=== PATIENT | female | born 1965 | race Caucasian/White ===

== ENCOUNTER 2025-04-29 16:18 | Inpatient (IN) | payer OTHER ==
[~2025-04-29] VITALS: Ht 165.1 cm; Wt 75.0 kg
[2025-04-29 18:08] LABS: BASO # 0.1 10^3/uL (0.0-0.2); BASO % 0.4 % (0.0-1.0); EOS # 0.0 10^3/uL (0.0-0.5); EOS % 0.1 % (0.0-3.0); LYMPH # 2.1 10^3/uL (1.5-5.0); LYMPH % 12.5 % (24.0-44.0); MONO # 1.2 10^3/uL (0.0-0.8); MONO % 7.0 % (2.0-8.0); NEUTROPHILS # 13.0 10^3/uL (1.5-8.5); NEUTROPHILS % 78.5 % (36.0-66.0); PLATELET COUNT, AUTOMATED 300 10^3/uL (150-450)
[2025-04-29 18:52] LABS: C REACTIVE PROTEIN QUANTITATIV 25.21 MG/DL (<1.0); CALCIUM LEVEL 8.4 MG/DL (8.5-10.1); CARBON DIOXIDE LEVEL 13 MMOL/L (20-31); CHLORIDE LEVEL 100 MMOL/L (98-107); CREATININE FOR GFR 0.75 MG/DL (0.55-1.30); GLOMERULAR FILTRATION RATE > 90.0 (>51); POTASSIUM SERUM 4.2 MMOL/L (3.5-5.1); SODIUM LEVEL 132 MMOL/L (136-145)
[2025-04-29] MEDS ORDERED: ISOVUE-370 76% 100 ML VIAL As Ordered ONE (19:15)
[2025-04-29 19:30] LABS: VENOUS PH 7.298 UNITS (7.330-7.430)
[2025-04-29 19:31] LABS: VENOUS BASE EXCESS -11.8 (-2.0-2.0); VENOUS HCO3 13.0 MMOL/L (23.0-27.0); VENOUS O2 SATURATION 78.5 % (60.0-80.0); VENOUS PARTIAL PRESSURE CO2 27.2 mmHg (38.0-50.0); VENOUS PARTIAL PRESSURE O2 43.0 mmHg (30.0-50.0); VENOUS STANDARD HCO3 14.9 MMOL/L; VENOUS TOTAL CO2 13.9 MMOL/L (24.0-28.0)
[2025-04-29] MEDS: NS (Normal Saline) 0.9% 1,000 ML IV ONE (19:47)
[2025-04-29 20:05] LABS: ALT/SGPT 10 U/L (7.0-40); AST/SGOT 11 U/L (<34)
[2025-04-29 20:06] LABS: ACETONE/KETONE > 4.50 MMOL/L (0.02-0.27)
[2025-04-29 20:23] LABS: OSMOLALITY SERUM 303 MOSM/KG (275-295)
[2025-04-29] MEDS ORDERED: BAYE500T2 PO (20:36)
[2025-04-29 20:39] LABS: KETONE, URINE AUTO RFX 2+ mg/dL (NEGATIVE); MUCUS, URINE RFX SMALL (NEGATIVE); NITRITE, URINE AUTO RFX NEGATIVE (NEGATIVE); RBC, URINE AUTO RFX 3 /HPF (0-3); SQUAM EPITHELIAL CELL UR AURFX 3 /HPF (0-6); WBC, URINE AUTO RFX 5 /HPF (0-3)
[2025-04-29 20:40] LABS: LEUKOCYTE ESTERASE UR AUTO RFX 1+ (NEGATIVE)
[2025-04-29] MEDS ORDERED: HOME MED LIST COMPLETE! XX SCH (20:40)
[2025-04-29] MEDS ORDERED: VANCOMYCIN HCL 1,880 MG in IV FLUID PLACE HOLDER 1 EA IV ONE (20:40)
[2025-04-29] MEDS: KETOROLAC 30 MG/ML 1 ML VIAL IV ONE (21:28)
[2025-04-29] MEDS: cefTRIAXone SOD 2 GM in DEXTROSE 5% (D5W) ADV/MINI-BAG 50 ML IV ONE (21:28)
[2025-04-29] MEDS: HumuLIN R (REGULAR) INSULIN (NovoLIN R) **100 U/ML** PER UNIT IV ONE (21:31)
[2025-04-29] MEDS ORDERED: DEXTROSE 50% 50 ML SYRINGE IV PRN (22:20)
[2025-04-29] MEDS ORDERED: GLUCAGON INJ 1 MG VIAL SC PRN (22:20)
[2025-04-29] MEDS ORDERED: INSULIN REGULAR IN 0.9 % NACL 100 UNIT in IV 1 EA IV SCH (22:20)
[2025-04-29] MEDS ORDERED: GLUCOSE 4 GM CHEW PO PRN (22:20)
[2025-04-29] MEDS ORDERED: INSULIN IV RATE CHANGE DOCUMENTATION ML/HR XX SCH (22:20)
[2025-04-29] MEDS: VANCOMYCIN HCL 1,500 MG, VIAL MATE ADAPTER 1 EACH in NS 500 ML IV ONE (22:25)
[2025-04-29 23:24] LABS: VENOUS BASE EXCESS -11.5 (-2.0-2.0); VENOUS HCO3 13.1 MMOL/L (23.0-27.0); VENOUS O2 SATURATION 97.5 % (60.0-80.0); VENOUS PARTIAL PRESSURE CO2 26.3 mmHg (38.0-50.0); VENOUS PARTIAL PRESSURE O2 104.9 mmHg (30.0-50.0); VENOUS PH 7.316 UNITS (7.330-7.430); VENOUS STANDARD HCO3 15.4 MMOL/L; VENOUS TOTAL CO2 13.9 MMOL/L (24.0-28.0)
[2025-04-29 23:59] LABS: INR 1.15
[2025-04-30] VITALS (13 sets, daily range): BP systolic 91–128; BP diastolic 51–60; TEMP 97.5–98.5; O2SAT 96–98
[2025-04-30 00:10] LABS: CALCIUM LEVEL 7.6 MG/DL (8.5-10.1); CARBON DIOXIDE LEVEL 14 MMOL/L (20-31); CHLORIDE LEVEL 105 MMOL/L (98-107); CREATININE FOR GFR 0.66 MG/DL (0.55-1.30); GLOMERULAR FILTRATION RATE > 90.0 (>51); POTASSIUM SERUM 4.8 MMOL/L (3.5-5.1); SODIUM LEVEL 135 MMOL/L (136-145)
[2025-04-30] MEDS: NS (Normal Saline) 0.9% 1,000 ML IV ONE (00:34)
[2025-04-30] MEDS: NS (Normal Saline) 0.9% 1,000 ML IV SCH ×2 (00:34→04:20)
[2025-04-30] MEDS ORDERED: VANCOMYCIN HCL 1,000 MG, VIAL MATE ADAPTER 1 EACH in NS 250 ML IV SCH (01:20)
[2025-04-30 03:23] LABS: VENOUS BASE EXCESS -15.3 (-2.0-2.0); VENOUS HCO3 10.0 MMOL/L (23.0-27.0); VENOUS O2 SATURATION 98.8 % (60.0-80.0); VENOUS PARTIAL PRESSURE CO2 23.0 mmHg (38.0-50.0); VENOUS PARTIAL PRESSURE O2 203.1 mmHg (30.0-50.0); VENOUS PH 7.258 UNITS (7.330-7.430); VENOUS STANDARD HCO3 12.8 MMOL/L; VENOUS TOTAL CO2 10.7 MMOL/L (24.0-28.0)
[2025-04-30 04:04] LABS: CALCIUM LEVEL 7.6 MG/DL (8.5-10.1); CARBON DIOXIDE LEVEL 12 MMOL/L (20-31); CHLORIDE LEVEL 108 MMOL/L (98-107); CREATININE FOR GFR 0.63 MG/DL (0.55-1.30); GLOMERULAR FILTRATION RATE > 90.0 (>51); POTASSIUM SERUM 3.9 MMOL/L (3.5-5.1); SODIUM LEVEL 136 MMOL/L (136-145)
[2025-04-30] MEDS: INSULIN REGULAR IN 0.9 % NACL 100 UNIT in IV 1 EA IV SCH (05:13)
[2025-04-30] MEDS: INSULIN IV RATE CHANGE DOCUMENTATION ML/HR XX SCH (06:00)
[2025-04-30] MEDS: KCL 10MEQ/100ML SWI (KRUN) 10 MEQ in IV 1 EA IV SCH (06:30)
[2025-04-30] MEDS ORDERED: POTASSIUM CHLORIDE 10MEQ/100ML SWI As Ordered ONE (06:50)
[2025-04-30] MEDS: PANTOPRAZOLE 40MG VIAL IV SCH (09:13)
[2025-04-30] MEDS: SODIUM BICARBONATE 325 MG TAB PO SCH (09:13)
[2025-04-30] MEDS: HEPARIN SOD 5000 UNITS/ML 1 ML VIAL/SYRINGE SC SCH (09:14)
[2025-04-30] MEDS: LanTUS (INSULIN GLARGINE INJ) 1 UNITS/0.01 ML SC SCH (09:14)
[2025-04-30 09:18] LABS: BASO # 0.1 10^3/uL (0.0-0.2); BASO % 0.3 % (0.0-1.0); CALCIUM LEVEL 8.3 MG/DL (8.5-10.1); CARBON DIOXIDE LEVEL 15 MMOL/L (20-31); CHLORIDE LEVEL 108 MMOL/L (98-107); CREATININE FOR GFR 0.58 MG/DL (0.55-1.30); EOS # 0.1 10^3/uL (0.0-0.5); EOS % 0.6 % (0.0-3.0); GLOMERULAR FILTRATION RATE > 90.0 (>51); LYMPH # 1.6 10^3/uL (1.5-5.0); LYMPH % 11.3 % (24.0-44.0); MONO # 1.3 10^3/uL (0.0-0.8); MONO % 8.8 % (2.0-8.0); NEUTROPHILS # 11.2 10^3/uL (1.5-8.5); NEUTROPHILS % 77.7 % (36.0-66.0); PLATELET COUNT, AUTOMATED 277 10^3/uL (150-450); POTASSIUM SERUM 3.7 MMOL/L (3.5-5.1); SODIUM LEVEL 138 MMOL/L (136-145)
[2025-04-30] MEDS: KETOROLAC 30 MG/ML 1 ML VIAL IV PRN (09:25)
[2025-04-30] MEDS: ACETAMINOPHEN *IV* 1,000 MG in IV 1 EA IV PRN (09:25)
[2025-04-30 09:30] LABS: C REACTIVE PROTEIN QUANTITATIV 23.60 MG/DL (<1.0)
[2025-04-30] MEDS ORDERED: DEXTROSE 50% 50 ML SYRINGE IV PRN (11:00)
[2025-04-30] MEDS ORDERED: GLUCAGON INJ 1 MG VIAL SC PRN (11:00)
[2025-04-30] MEDS ORDERED: GLUCOSE 4 GM CHEW PO PRN (11:00)
[2025-04-30] MEDS: VANCOMYCIN HCL 1,250 MG, VIAL MATE ADAPTER 1 EACH in NS 250 ML IV SCH (12:19)
[2025-04-30] MEDS: INSULIN LISPRO (NovoLOG) PER UNIT SC SCH ×3 (13:14→21:40)
[2025-04-30 14:56] LABS: CALCIUM LEVEL 7.7 MG/DL (8.5-10.1); CARBON DIOXIDE LEVEL 17 MMOL/L (20-31); CHLORIDE LEVEL 110 MMOL/L (98-107); CREATININE FOR GFR 0.60 MG/DL (0.55-1.30); GLOMERULAR FILTRATION RATE > 90.0 (>51); PHOSPHORUS LEVEL 2.3 MG/DL (2.5-4.9); POTASSIUM SERUM 3.7 MMOL/L (3.5-5.1); SODIUM LEVEL 140 MMOL/L (136-145)
[2025-04-30] MEDS ORDERED: cefTRIAXone SOD 2 GM in DEXTROSE 5% (D5W) ADV/MINI-BAG 50 ML IV SCH (20:00)
[2025-05-01] VITALS (8 sets, daily range): BP systolic 127–166; BP diastolic 59–73; TEMP 97.1–102.4; O2SAT 96–99
[2025-05-01 05:27] LABS: BASO # 0.0 10^3/uL (0.0-0.2); BASO % 0.2 % (0.0-1.0); EOS # 0.2 10^3/uL (0.0-0.5); EOS % 1.6 % (0.0-3.0); LYMPH # 1.4 10^3/uL (1.5-5.0); LYMPH % 11.1 % (24.0-44.0); MONO # 0.9 10^3/uL (0.0-0.8); MONO % 7.3 % (2.0-8.0); NEUTROPHILS # 10.1 10^3/uL (1.5-8.5); NEUTROPHILS % 78.4 % (36.0-66.0); PLATELET COUNT, AUTOMATED 279 10^3/uL (150-450)
[2025-05-01 05:47] LABS: CALCIUM LEVEL 7.9 MG/DL (8.5-10.1); CARBON DIOXIDE LEVEL 18 MMOL/L (20-31); CHLORIDE LEVEL 109 MMOL/L (98-107); CREATININE FOR GFR 0.67 MG/DL (0.55-1.30); GLOMERULAR FILTRATION RATE > 90.0 (>51); POTASSIUM SERUM 3.6 MMOL/L (3.5-5.1); SODIUM LEVEL 139 MMOL/L (136-145)
[2025-05-01] MEDS: INSULIN LISPRO (NovoLOG) PER UNIT SC SCH ×3 (07:30→18:22)
[2025-05-01] MEDS: HumuLIN R (REGULAR) INSULIN (NovoLIN R) **100 U/ML** PER UNIT IV STA (08:26)
[2025-05-01] MEDS ORDERED: LanTUS (INSULIN GLARGINE INJ) 1 UNITS/0.01 ML SC SCH (09:00)
[2025-05-01] MEDS: LanTUS (INSULIN GLARGINE INJ) 1 UNITS/0.01 ML SC SCH (09:46)
[2025-05-01] MEDS: cefTRIAXone SOD 2 GM in DEXTROSE 5% (D5W) ADV/MINI-BAG 50 ML IV SCH (09:46)
[2025-05-01] MEDS: FLUZONE VACCINE TRI PF(25-26) 0.5ML SYRINGE IM.IMMUN ONE (15:57)
[2025-05-01] MEDS: PNEUMOC 21-VAL CONJ-DIP CRM/PF 0.5 ML SYRINGE IM.IMMUN ONE (15:57)
[2025-05-01] MEDS ORDERED: VANCOMYCIN HCL 750 MG, VIAL MATE ADAPTER 1 EACH in NS 250 ML IV SCH (23:00)
[2025-05-02 00:20] VITALS: BP 152/65; TEMP 99.3; O2SAT 99
[2025-05-02 04:52] VITALS: BP 132/61; TEMP 100.3; O2SAT 95
[2025-05-02] MEDS ORDERED: CALCIUM CARBONATE 500 MG CHEW U/D PO PRN (06:25)
[2025-05-02] MEDS: ONDANSETRON 4MG/2ML VIAL IV PRN (06:50)
[2025-05-02 08:15] LABS: BASO # 0.0 10^3/uL (0.0-0.2); BASO % 0.3 % (0.0-1.0); EOS # 0.2 10^3/uL (0.0-0.5); EOS % 1.9 % (0.0-3.0); LYMPH # 1.7 10^3/uL (1.5-5.0); LYMPH % 14.1 % (24.0-44.0); MONO # 0.9 10^3/uL (0.0-0.8); MONO % 7.1 % (2.0-8.0); NEUTROPHILS # 8.9 10^3/uL (1.5-8.5); NEUTROPHILS % 75.1 % (36.0-66.0); PLATELET COUNT, AUTOMATED 286 10^3/uL (150-450)
[2025-05-02] MEDS: cefTRIAXone SOD 2 GM in NS MINI-BAG PLUS 50 ML IV SCH (08:23)
[2025-05-02 08:36] LABS: CALCIUM LEVEL 7.7 MG/DL (8.5-10.1); CARBON DIOXIDE LEVEL 20 MMOL/L (20-31); CHLORIDE LEVEL 110 MMOL/L (98-107); CREATININE FOR GFR 0.70 MG/DL (0.55-1.30); GLOMERULAR FILTRATION RATE > 90.0 (>51); MAGNESIUM LEVEL 1.6 MG/DL (1.8-2.4); POTASSIUM SERUM 3.3 MMOL/L (3.5-5.1); SODIUM LEVEL 141 MMOL/L (136-145)
[2025-05-02] MEDS: VANCOMYCIN HCL 750 MG, VIAL MATE ADAPTER 1 EACH in NS 250 ML IV SCH (09:39)
[2025-05-02 10:00] VITALS: BP 138/80; TEMP 97.8; O2SAT 99
[2025-05-02 10:57] LABS: PHOSPHORUS LEVEL 3.2 MG/DL (2.5-4.9)
[2025-05-02] MEDS: MAG SULF 1GM/100ML (MAG RUN) 1 GM in IV 1 EA IV SCH (11:02)
[2025-05-02] MEDS: POTASSIUM CHLORIDE 10MEQ SR TABLET PO ONE (12:39)
[2025-05-02 21:11] VITALS: BP 128/61; TEMP 99; O2SAT 98
[2025-05-03 02:54] VITALS: BP 142/76; TEMP 97.8; O2SAT 97
[2025-05-03 06:22] LABS: BASO # 0.0 10^3/uL (0.0-0.2); BASO % 0.4 % (0.0-1.0); EOS # 0.3 10^3/uL (0.0-0.5); EOS % 2.5 % (0.0-3.0); LYMPH # 1.6 10^3/uL (1.5-5.0); LYMPH % 16.7 % (24.0-44.0); MONO # 0.7 10^3/uL (0.0-0.8); MONO % 6.8 % (2.0-8.0); NEUTROPHILS # 7.1 10^3/uL (1.5-8.5); NEUTROPHILS % 72.4 % (36.0-66.0); PLATELET COUNT, AUTOMATED 325 10^3/uL (150-450)
[2025-05-03 06:48] LABS: CALCIUM LEVEL 7.8 MG/DL (8.5-10.1); CARBON DIOXIDE LEVEL 22 MMOL/L (20-31); CHLORIDE LEVEL 112 MMOL/L (98-107); CREATININE FOR GFR 0.70 MG/DL (0.55-1.30); GLOMERULAR FILTRATION RATE > 90.0 (>51); MAGNESIUM LEVEL 1.9 MG/DL (1.8-2.4); POTASSIUM SERUM 3.7 MMOL/L (3.5-5.1); SODIUM LEVEL 143 MMOL/L (136-145)
[2025-05-03] MEDS ORDERED: MOM 30 ML SUSPENSION UDC PO PRN (08:40)
[2025-05-03] MEDS ORDERED: MIRALAX *UNIT DOSE* 17 GM PACKET PO PRN (08:40)
[2025-05-03] MEDS: SENNOSIDES/DOCUSATE SODIUM 8.6 MG/50MG TAB PO SCH (10:02)
[2025-05-03 12:00] VITALS: BP 141/67; TEMP 98.6; O2SAT 97
[2025-05-03 20:49] VITALS: BP 141/51; TEMP 97.5; O2SAT 95
[2025-05-03] MEDS: AUGMENTIN 875 MG TAB PO SCH (21:08)
[2025-05-04 04:20] VITALS: BP 140/60; TEMP 97.3; O2SAT 95
[2025-05-04 06:33] LABS: BASO # 0.0 10^3/uL (0.0-0.2); BASO % 0.4 % (0.0-1.0); EOS # 0.3 10^3/uL (0.0-0.5); EOS % 2.9 % (0.0-3.0); LYMPH # 2.0 10^3/uL (1.5-5.0); LYMPH % 20.5 % (24.0-44.0); MONO # 0.8 10^3/uL (0.0-0.8); MONO % 8.5 % (2.0-8.0); NEUTROPHILS # 6.6 10^3/uL (1.5-8.5); NEUTROPHILS % 66.5 % (36.0-66.0); PLATELET COUNT, AUTOMATED 360 10^3/uL (150-450)
[2025-05-04 07:05] LABS: CALCIUM LEVEL 7.7 MG/DL (8.5-10.1); CARBON DIOXIDE LEVEL 25 MMOL/L (20-31); CHLORIDE LEVEL 110 MMOL/L (98-107); CREATININE FOR GFR 0.58 MG/DL (0.55-1.30); GLOMERULAR FILTRATION RATE > 90.0 (>51); POTASSIUM SERUM 3.8 MMOL/L (3.5-5.1); SODIUM LEVEL 144 MMOL/L (136-145)
[2025-05-04 08:48] LABS: C REACTIVE PROTEIN QUANTITATIV 8.73 MG/DL (<1.0)
[2025-05-04] MEDS: metFORMIN 500 MG TAB PO SCH (09:49)
[2025-05-04] MEDS: LanTUS (INSULIN GLARGINE INJ) 1 UNITS/0.01 ML SC SCH (09:49)
[2025-05-04] MEDS: INSULIN LISPRO (NovoLOG) PER UNIT SC SCH (12:47)
[2025-05-04 21:11] VITALS: BP 130/60; TEMP 98.6; O2SAT 97
[2025-05-04 23:54] VITALS: TEMP 98.4
[2025-05-04] MEDS: MUPIROCIN 2% OINT 22 GM TUBE TOP SCH (23:56)
[2025-05-05 03:55] VITALS: BP 156/72; TEMP 97.8; O2SAT 95
[2025-05-05 06:46] LABS: BASO # 0.0 10^3/uL (0.0-0.2); BASO % 0.4 % (0.0-1.0); EOS # 0.3 10^3/uL (0.0-0.5); EOS % 2.7 % (0.0-3.0); LYMPH # 2.0 10^3/uL (1.5-5.0); LYMPH % 18.8 % (24.0-44.0); MONO # 1.2 10^3/uL (0.0-0.8); MONO % 10.7 % (2.0-8.0); NEUTROPHILS # 7.1 10^3/uL (1.5-8.5); NEUTROPHILS % 65.6 % (36.0-66.0); PLATELET COUNT, AUTOMATED 403 10^3/uL (150-450)
[2025-05-05 07:01] LABS: C REACTIVE PROTEIN QUANTITATIV 7.29 MG/DL (<1.0); CALCIUM LEVEL 7.5 MG/DL (8.5-10.1); CARBON DIOXIDE LEVEL 26 MMOL/L (20-31); CHLORIDE LEVEL 106 MMOL/L (98-107); CREATININE FOR GFR 0.55 MG/DL (0.55-1.30); GLOMERULAR FILTRATION RATE > 90.0 (>51); POTASSIUM SERUM 3.5 MMOL/L (3.5-5.1); SODIUM LEVEL 142 MMOL/L (136-145)
[2025-05-05 09:45] LABS: MAGNESIUM LEVEL 1.5 MG/DL (1.8-2.4); PHOSPHORUS LEVEL 4.0 MG/DL (2.5-4.9)
[2025-05-05] MEDS ORDERED: ALCOPAD25 TOP (10:40)
[2025-05-05] MEDS ORDERED: BLOOKIT21 XX (10:40)
[2025-05-05] MEDS ORDERED: GLUC1TES2 XX (10:41)
[2025-05-05] MEDS ORDERED: SITA50TAB PO (10:41)
[2025-05-05] MEDS ORDERED: MUPI2OI TOP (10:41)
[2025-05-05] MEDS ORDERED: PEN-308 SC (10:41)
[2025-05-05] MEDS ORDERED: LANC30MI XX (10:41)
[2025-05-05] MEDS ORDERED: METF-838 PO (10:41)
[2025-05-05] MEDS ORDERED: INSUHUMDS SC (10:41)
[2025-05-05] MEDS ORDERED: AMOX875T2 PO (10:41)
[2025-05-05] MEDS ORDERED: LANTINJ4 SC (10:41)
[2025-05-05 12:00] VITALS: BP 128/62; TEMP 98.7; O2SAT 96
[2025-05-05] MEDS: FLUCONAZOLE 100 MG TAB PO SCH (14:41)
[2025-05-05] MEDS ORDERED: FLUC-1 PO (16:53)
== END 2025-05-05 16:26 | disposition home or self-care (01) | DRG 720 ==
LOC: M ED 16:18 → M ED INP 22:18 → EEVIPCON 22:18 → M ICU 04-30 09:56 → M MS5PR 05-01 14:23 → M MSPAV 05-02 10:31
PROVIDERS: ADMIT Student in an Organized Health Care Education/Training Program; ATTEND Internal Medicine
DX: A41.9 Sepsis, unspecified organism (principal); E11.10 Type 2 diabetes mellitus with ketoacidosis without coma; L03.315 Cellulitis of perineum; E11.65 Type 2 diabetes mellitus with hyperglycemia; F17.210 Nicotine dependence, cigarettes, uncomplicated; E86.0 Dehydration; L03.317 Cellulitis of buttock; K61.0 Anal abscess; K59.00 Constipation, unspecified; Z79.82 Long term (current) use of aspirin